=== PATIENT | male | born 1935 | race Two or more races ===

== ENCOUNTER 2016-10-25 08:47 | Emergency (ER) | payer OTHER ==
[~2016-10-25] VITALS: Ht 167.6 cm; Wt 82.6 kg
[~2016-10-25 08:47] MED LIST: ALLO300T2 PO; AMLO2.5T PO; ATOR80TA PO; BUDE10.2 INH; BUPR300T54 PO; CALC0.253 PO; CARV6.252 PO; CHOL100044 PO; FINA5TAB3 PO; FOLI1TAB16 PO; FURO40TA5 PO; OMEG1CAP40 PO; PANT40TA2 PO; TAMS0.4C34 PO; TIOT18CA3 IH; VIT1TABL46 PO; ZOLP10TA6 PO
[2016-10-25] MEDS ORDERED: ACETAMINOPHEN ES 500 MG TABLET PO ONE (09:00)
[2016-10-25] MEDS ORDERED: IV NS 0.9% 1,000 ML BAG IV ONE (09:00)
[2016-10-25] MEDS ORDERED: IV NS 0.9% 1,000 ML ONE (09:02)
[2016-10-25] MEDS ORDERED: IV SET PRIMARY PUMP SET 1 EA INFUS.SET MC ONE (09:02)
[2016-10-25] MEDS ORDERED: ACETAMINOPHEN ES 500 MG TABLET ONE (09:02)
[2016-10-25 09:25] LABS: BASOPHILS % (AUTO) 0.8 % (0.0-2.0); DIFF TOTAL % 100 %; EOSINOPHILS # (AUTO) 0.1 /CMM (0.0-0.7); EOSINOPHILS % (AUTO) 2.5 % (0.0-6.0); HEMATOCRIT 32 % (39-51); HEMOGLOBIN 10.2 g/dL (13.5-17.5); LYMPHOCYTES # (AUTO) 0.8 /CMM (0.8-4.8); MEAN CORPUSCULAR HEMOGLOBIN 28 PG (26.0-33.0); MEAN CORPUSCULAR HGB CONC 32 g/dl (31.0-36.0); MEAN CORPUSCULAR VOLUME 87 fL (80-96); MONOCYTES # (AUTO) 0.6 /CMM (0.1-1.30); MONOCYTES % (AUTO) 11.7 % (2.0-12.0); NEUTROPHILS # (AUTO) 3.9 /CMM (1.8-8.9); PLATELET COUNT (AUTO) 208 /CMM (150-450); RED BLOOD CELL COUNT(AUTO) 3.66 MIL/uL (4.5-6.0); WHITE BLOOD COUNT (AUTO) 5.5 K/uL (4.3-11.0)
[2016-10-25 09:32] LABS: CALCIUM, SERUM 8.8 mg/dL (8.5-10.1); CREATININE 4.2 mg/dL (0.6-1.3); POTASSIUM 4.1 mmol/L (3.5-5.1)
[2016-10-25 09:41] LABS: LACTIC ACID 0.8 mmol/L (0.4-2.0); TROPONIN I 0.026 ng/mL (0.00-0.056)
[2016-10-25 09:48] LABS: ALBUMIN 2.8 g/dL (3.4-5.0); BILIRUBIN,DIRECT 0.1 mg/dL (0.0-0.2); BILIRUBIN,TOTAL 0.4 mg/dL (0.2-1.0); INDIRECT BILIRUBIN 0.3 mg/dL (0.0-1.1); TOTAL PROTEIN, SERUM 7.2 g/dL (6.4-8.2)
[2016-10-25 10:04] LABS: INR 0.94 (0.87-1.13); PROTHROMBIN TIME 10.2 SECS (9.5-12.7)
[2016-10-25 10:40] VITALS: BP 138/68
== END 2016-10-25 10:41 | disposition left against medical advice (07) ==
LOC: ER 08:49
DX: J20.9 Acute bronchitis, unspecified (principal); R09.02 Hypoxemia; I10 Essential (primary) hypertension
CPT/HCPCS: 36415; 71010; 80048; 80076; 82962; 83605; 83880; 84484; 85025; 85730; 87040 ×2; 87804; 93005; 96360; 99285; A4606; J7030; Z7610; 87400

== ENCOUNTER 2018-01-04 10:04 | Emergency (ER) | payer OTHER, MEDICARE ==
[~2018-01-04] VITALS: Ht 167.6 cm; Wt 74.8 kg
[2018-01-04] MEDS: LIDOCAINE 2% JEL UROJET 10 ML MM ONE (10:31)
[2018-01-04 10:32] LABS: APPEARANCE,URINE Cloudy (CLEAR); BILIRUBIN,URINE Negative (NEGATIVE); BLOOD, URINE Trace-intact Ery/uL (NEGATIVE); COLOR,URINE Yellow (YELLOW); KETONES,URINE Negative (NEGATIVE); LEUKOCYTE ESTERASE ,URINE Moderate (NEGATIVE); NITRITE, URINE Negative (NEGATIVE); PROTEIN,URINE 100 mg/dl (NEGATIVE); UGLUCOSE Negative (NEGATIVE); UROBILINOGEN,URINE 0.2 EU/dL (0.2)
[2018-01-04 10:33] LABS: BASOPHILS % (AUTO) 0.4 % (0.0-2.0); EOSINOPHILS # (AUTO) 0.1 /CMM (0.0-0.7); EOSINOPHILS % (AUTO) 0.6 % (0.0-6.0); HEMATOCRIT 32 % (39-51); HEMOGLOBIN 10.9 g/dL (13.5-17.5); LYMPHOCYTES # (AUTO) 0.9 /CMM (0.8-4.8); LYMPHOCYTES % (AUTO) 9.8 % (20.0-44.0); MEAN CORPUSCULAR HEMOGLOBIN 29 PG (26.0-33.0); MEAN CORPUSCULAR HGB CONC 34 g/dl (31.0-36.0); MEAN CORPUSCULAR VOLUME 85 fL (80-96); MONOCYTES # (AUTO) 0.7 /CMM (0.1-1.30); NEUTROPHILS # (AUTO) 7.8 /CMM (1.8-8.9); NEUTROPHILS % (AUTO) 82.2 % (43.0-81.0); PLATELET COUNT (AUTO) 283 /CMM (150-450); RDW COEFFICIENT OF VARIATION 15.2 (11.5-15.0); RED BLOOD CELL COUNT(AUTO) 3.78 MIL/uL (4.5-6.0); WHITE BLOOD COUNT (AUTO) 9.5 K/uL (4.3-11.0)
--- NOTE | 2018-01-04 10:35 | NUR ---
PT REC'D TO ER C/O NOT ABLE TO URINATE FOR 4 DAYS HX OF F R CATH INSIRITED YELLOW CLOUDY RINE OUT P[UT 500CC . UA SENT TO LAB IV STARTED 20G LEFT AC LABS DRAWN SENT TO LAB . NOSE BLOODY PT STATED HE USES COCAINE USE FOR PAIN , FAMILY AT BEDSIDE
[2018-01-04 10:42] LABS: BACTERIA,URINE 2+ /HPF (None Seen); SQUAMOUS EPITHELIAL CELL,UR Few /HPF (None Seen)
[2018-01-04 10:46] LABS: CALCIUM, SERUM 9.2 mg/dL (8.5-10.1); CARBON DIOXIDE 20 mmol/L (21-32); CHLORIDE 100 mmol/L (98-107); GLUCOSE 106 mg/dL (74-106); SODIUM SERUM 132 mmol/L (136-145); UREA NITROGEN, BLOOD 60 mg/dL (7-18)
--- NOTE | 2018-01-04 11:20 | NUR ---
pt mukesh be d/c'd w/ f/c and leg bag. provided w/ [facility].
--- NOTE | 2018-01-04 11:25 | NUR ---
Patient discharged to home in stable condition. Written and verbal after care instructions given. Patient verbalizes understanding of instruction.IV removed. Catheter intact and site benign. Pressure and 4x4 applied to site. No bleeding noted.
[2018-01-04 11:28] VITALS: BP 122/75
[2018-01-04 11:51] LABS: LYMPHOCYTES % (MANUAL) 11 % (16-48); MONOCYTES % (MANUAL) 8 % (0-11.0); NEUTROPHILS % (MANUAL) 81 (42-76)
== END 2018-01-04 11:30 | disposition home or self-care (01) ==
LOC: ER 10:13
DX: N39.0 Urinary tract infection, site not specified (principal); I10 Essential (primary) hypertension; F10.10 Alcohol abuse, uncomplicated
CPT/HCPCS: 36415; 51702; 80048; 81001; 85025; 87077; 87086; 87186; 99284; A4606; Z7610; 81000-TC